=== PATIENT | male | born 1965 | race Caucasian/White ===

== ENCOUNTER 2018-11-06 13:09 | Inpatient (IN) | payer OTHER ==
[2018-11-06 18:17] VITALS: BMI 31.8
--- NOTE | 2018-11-06 19:46 | HP ---
CIWA Score Nausea/Vomitin Muscle Tremors: 3 Anxiety: 3 Agitation: 2 Paroxysmal Sweats: 1-Minimal Palms Moist Orientation: 0-Oriented Tacttile Disturbances: 1-Very Mild Itch/Numbness Auditory Disturbances: 1-Very Mild Visual Disturbances: 0-None Headache: 2-Mild CIWA-Ar Total Score: 15 - Admission Criteria [facility]ASAS Guidelines: Admission for Medically Managed Detox: Requires at least one of the followin. CIWA greater than 12 2. Seizures within the past 24 hours 3. Delirium tremens within the past 24 hours 4. Hallucinations within the past 24 hours 5. Acute intervention needed for co occurring medical disorder 6. Acute intervention needed for co occurring psychiatric disorder 7. Severe withdrawal that cannot be handled at a lower level of care (continued vomiting, continued diarrhea, abnormal vital signs) requiring intravenous medication and/or fluids 8. Admission ROS [facility] - HPI Chief Complaint: i need help to stop drinking alcohol cocaine Allergies/Adverse Reactions: Allergies Allergy/AdvReac Type Severity Reaction Status Date / Time No Known Allergies Allergy Verified 11/06/18 19:38 History of Present Illness: this 53 years old male with alcohol and cocaine dependence,seeking detox, withdrawal symptom mmtp 50 mgs/day for last 6 months has a bottle of methadone 50 mgs supposed to be given for sun 11/07/18 heroin abused nicotine dependence weight loss anxiety,depression,on zoloft 50 mgs hs last medicated 1 week ago plan to go back to mmtp program - Ebola screening Have you traveled outside of the country in the last 21 days: No Have you had contact with anyone from an Ebola affected area: No - Review of Systems Constitutional: Loss of Appetite, Night Sweats, Changes in sleep, Unintentional Wgt. Loss EENT: reports: Nose Congestion Respiratory: reports: No Symptoms reported Cardiac: reports: No Symptoms Reported GI: reports: Diarrhea, Nausea, Poor Appetite : reports: No Symptoms Reported Musculoskeletal: reports: Back Pain, Muscle Pain Integumentary: reports: Dryness Neuro: reports: Headache, Tremors Endocrine: reports: No Symptoms Reported Hematology: reports: No Symptoms Reported Psychiatric: reports: No Sypmtoms Reported, Judgement Intact, Mood/Affect Appropiate, Orientated x3, Anxious, Depressed (insomnia) Other Systems: Reviewed and Negative Patient History - Patient Medical History Hx Anemia: No Hx Asthma: No Hx Chronic Obstructive Pulmonary Disease (COPD): No Hx Cancer: No Hx Cardiac Disorders: No Hx Congestive Heart Failure: No Hx Hypertension: No Hx Hypercholesterolemia: No Hx Pacemaker: No HX Cerebrovascular Accident: No Hx Seizures: No Hx Dementia: No Hx Diabetes: No Hx Gastrointestinal Disorders: Yes (umbilical hernia,gerd) Hx Liver Disease: No Hx Genitourinary Disorders: No Hx Sexually Transmitted Disorders: No Hx Renal Disease (ESRD): No Hx Thyroid Disease: No Hx Human Immunodeficiency Virus (HIV): No (2011 negative) Hx Hepatitis C: No Hx Depression: Yes (anxiety ) Hx Suicide Attempt: No Hx Bipolar Disorder: No Hx Schizophrenia: No Other Medical History: insomnia,no suicidal,no homicidal - Patient Surgical History Past Surgical History: No - PPD History Previous Implant?: Yes Documented Results: Positive w/o proof Implanted On Prior [facility] Admission?: No PPD to be Administered?: No - Smoking Cessation Smoking history: Never smoked - Substance & Tx. History Hx Alcohol Use: Yes Hx Substance Use: Yes Substance Use Type: Alcohol, Cocaine Hx Substance Use Treatment: Yes (2002 unknown facility) - Substances abused Alcohol Substance route: Oral Frequency: Daily Amount used: liquor- 3 pints Age of first use: 25 Date of last use: 11/06/18 Cocaine Substance route: Inhalation Frequency: 1-2 times per week Amount used: 10$ Age of first use: 25 Date of last use: 11/03/18 Heroin Other (specify): sniff Frequency: 1-2 times per week Amount used: 1 bag Age of first use: 25 Date of last use: 11/04/18 Family Disease History - Family Disease History Family History: Denies Admission Physical Exam [facility] - Vital Signs Vital Signs: Vital Signs - 24 hr 11/06/18 18:12 Temperature 97.0 F L Pulse Rate 53 L Respiratory 17 Rate Blood Pressure 134/92 - Physical General Appearance: Yes: Moderate Distress, Tremorous, Irritable, Sweating, Anxious HEENTM: Yes: Normal ENT Inspection, Pharynx Normal Respiratory: Yes: Lungs Clear, Normal Breath Sounds, No Respiratory Distress Neck: Yes: Within Normal Limits, Supple, Trachea in good position Breast: Yes: Within Normal Limits Cardiology: Yes: Within Normal Limits, Regular Rhythm, Regular Rate, S1, S2 Abdominal: Yes: Within Normal Limits, Normal Bowel Sounds, Non Tender, Flat, Soft, Other (umbilical hernia) Genitourinary: Yes: Within Normal Limits Back: Yes: Muscle Spasm Musculoskeletal: Yes: full range of Motion, Back pain, Muscle Pain Extremities: Yes: Tremors Neurological: Yes: machine heel sprayer II-XII NML intact, Fully Oriented, Alert, Motor Strength 5/5 Integumentary: Yes: Dry Lymphatic: Yes: Within Normal Limits - Diagnostic (1) Alcohol dependence with uncomplicated withdrawal Current Visit: Yes Status: Acute (2) Cocaine dependence Current Visit: Yes Status: Acute (3) Heroin abuse Current Visit: Yes Status: Acute (4) Methadone maintenance therapy patient Current Visit: Yes Status: Acute (5) Umbilical hernia Current Visit: Yes Status: Acute (6) Peptic ulcer Current Visit: Yes Status: Acute (7) Dehydration Current Visit: Yes Status: Acute (8) Positive PPD, treated Current Visit: Yes Status: Acute Cleared for Admission S - Detox or Rehab [facility] Level of Care: Medically Managed Detox Regimen/Protocol: Librium Breathalyzer - Breathalyzer Breathalyzer: 0 Urine Drug Screen - Test Device Lot number: [id number] Expiration date: 06/11/20 - Control Is test valid?: Yes - Results Drug screen NEGATIVE: No Urine drug screen results: [facility]-Cocaine Inpatient Rehab Admission - Rehab Decision to Admit Inpatient rehab admission?: No
[2018-11-06] MEDS ORDERED: ACETAMINOPHEN 325 MG TABLET (FP) PO PRN ×2 (19:59)
[2018-11-06] MEDS ORDERED: chlordiazePOXIDE HCL 25 MG CAPSULE PO PRN (19:59)
[2018-11-06] MEDS ORDERED: MENTHOL/PHENOL 1 EACH UD MM PRN (19:59)
[2018-11-06] MEDS ORDERED: MELATONIN 5 MG TABLETS PO PRN (19:59)
[2018-11-06] MEDS ORDERED: MAGNESIUM HYDROX 2400MG/30ML ORAL SUSPENSION 30 ML CUP PO PRN (19:59)
[2018-11-06] MEDS ORDERED: IBUPROFEN 400 MG TABLET (FP) PO PRN (19:59)
[2018-11-06] MEDS ORDERED: hydrOXYzine PAMOATE 25 MG CAPSULE (FP) PO PRN (19:59)
[2018-11-06] MEDS ORDERED: METHOCARBAMOL 500 MG TABLET PO PRN (19:59)
[2018-11-06] MEDS ORDERED: MAGNESIUM CITRATE 300 ML BOTTLE PO PRN (19:59)
[2018-11-06] MEDS ORDERED: MAG HYDROX/AL HYDROX/SIMETH 30 ML UNIT-DOSE CUP PO PRN (19:59)
[2018-11-06] MEDS ORDERED: BISMUTH SUBSALICYLATE 524 MG/30 ML UD PO PRN (19:59)
[2018-11-06] MEDS: RANITIDINE HCL 150 MG TABLET (FP) PO SCH (21:12)
[2018-11-06] MEDS: THIAMINE HCL 100 MG TABLET (FP) PO SCH (21:12)
[2018-11-06] MEDS: chlordiazePOXIDE HCL 25 MG CAPSULE PO SCH (22:00)
[2018-11-06 23:51] LABS: PH,URINE 6.5 (5.0-8.0); URINE APPEARANCE CLEAR; URINE BILIRUBIN NEGATIVE (NEGATIVE); URINE COLOR YELLOW; URINE GLUCOSE (UA) NEGATIVE (NEGATIVE); URINE KETONE TRACE (NEGATIVE); URINE LEUK ESTERASE NEGATIVE (NEGATIVE); URINE NITRITE NEGATIVE (NEGATIVE); URINE PROTEIN NEGATIVE (NEGATIVE)
[2018-11-07] MEDS: chlordiazePOXIDE HCL 25 MG CAPSULE PO SCH ×4 (05:48→22:20)
[2018-11-07] MEDS: RANITIDINE HCL 150 MG TABLET (FP) PO SCH ×2 (10:20→22:21)
[2018-11-07] MEDS: PRENATAL VITAMINS W/ FOLIC ACID TABLET (FP) PO SCH (10:20)
[2018-11-07 10:44] LABS: HEMATOCRIT 39.6 % (35.4-49); HEMOGLOBIN 12.8 GM/dL (11.7-16.9); MCH 30.1 pg (25.7-33.7); MCHC 32.2 g/dl (32.0-35.9); MEAN CELL VOLUME 93.5 fl (80-96); MEAN PLT VOLUME 11.6 fl (7.5-11.1); PLATELET COUNT 105 K/MM3 (134-434); RBC 4.23 M/mm3 (4.00-5.60); WHITE BLOOD COUNT 3.6 K/mm3 (4.0-10.0)
[2018-11-07 10:49] LABS: ALBUMIN 2.8 g/dl (3.4-5.0); ALK PHOS 104 U/L (45-117); ANION GAP 4 MMOL/L (8-16); BILIRUBIN,TOTAL 0.3 mg/dL (0.2-1); BLOOD UREA NITROGEN 6 mg/dL (7-18); CALCIUM 8.7 mg/dL (8.5-10.1); CHLORIDE 103 mmol/L (98-107); CO2 32 mmol/L (21-32); CREATININE 0.4 mg/dL (0.55-1.3); GLUCOSE,RANDOM 75 mg/dL (74-106); POTASSIUM 3.5 mmol/L (3.5-5.1); SGOT/AST 40 U/L (15-37); SGPT/ALT 43 U/L (13-61); SODIUM 138 mmol/L (136-145); TOT PROT 6.7 g/dl (6.4-8.2)
--- NOTE | 2018-11-07 10:56 | PN ---
[facility] CIWA - CIWA Score Nausea/Vomitin-Mild Nausea/No Vomiting Muscle Tremors: 4-Moderate,w/Arms Extend Anxiety: 1-Mildly Anxious Agitation: 3 Paroxysmal Sweats: 1-Minimal Palms Moist Orientation: 2-Disoriented Date<2 days Tacttile Disturbances: 0-None Auditory Disturbances: 0-None Visual Disturbances: 0-None Headache: 0-None Present CIWA-Ar Total Score: 12 S Progress Note (SOAP) Subjective: feeling tired wants to stay on bed sleep longer hesitate to talk about alcohol misuse Objective: 11/07/18 10:56 Vital Signs Temperature 98.1 F 11/07/18 09:21 Pulse Rate 52 L 11/07/18 09:21 Respiratory Rate 18 11/07/18 09:21 Blood Pressure 140/82 11/07/18 09:21 O2 Sat by Pulse Oximetry (%) Laboratory Last Values Sodium 138 mmol/L (136-145) 11/07/18 07:00 Potassium 3.5 mmol/L (3.5-5.1) 11/07/18 07:00 Chloride 103 mmol/L (98-107) 11/07/18 07:00 Carbon Dioxide 32 mmol/L (21-32) 11/07/18 07:00 Anion Gap 4 MMOL/L (8-16) L 11/07/18 07:00 BUN 6 mg/dL (7-18) L 11/07/18 07:00 Creatinine 0.4 mg/dL (0.55-1.3) L 11/07/18 07:00 Creat Clearance w eGFR 225.02 (>60) 11/07/18 07:00 Random Glucose 75 mg/dL (74-106) 11/07/18 07:00 Calcium 8.7 mg/dL (8.5-10.1) 11/07/18 07:00 Total Bilirubin 0.3 mg/dL (0.2-1) 11/07/18 07:00 AST 40 U/L (15-37) H 11/07/18 07:00 ALT 43 U/L (13-61) 11/07/18 07:00 Alkaline Phosphatase 104 U/L (45-117) 11/07/18 07:00 Total Protein 6.7 g/dl (6.4-8.2) 11/07/18 07:00 Albumin 2.8 g/dl (3.4-5.0) L 11/07/18 07:00 Urine Color Yellow 11/06/18 23:40 Urine Appearance Clear 11/06/18 23:40 Urine pH 6.5 (5.0-8.0) 11/06/18 23:40 Ur Specific [place] 1.025 (1.010-1.035) 11/06/18 23:40 Urine Protein Negative (NEGATIVE) 11/06/18 23:40 Urine Glucose (UA) Negative (NEGATIVE) 11/06/18 23:40 Urine Ketones Trace (NEGATIVE) H 11/06/18 23:40 Urine Blood Negative (NEGATIVE) 11/06/18 23:40 Urine Nitrite Negative (NEGATIVE) 11/06/18 23:40 Urine Bilirubin Negative (NEGATIVE) 11/06/18 23:40 Urine Urobilinogen 1.0 mg/dL (0.2-1.0) 11/06/18 23:40 Ur Leukocyte Esterase Negative (NEGATIVE) 11/06/18 23:40 lab noted Assessment: 11/07/18 10:57 alcohol withdrawal sx Plan: continue detox
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
[2018-11-07] MEDS: THIAMINE HCL 100 MG TABLET (FP) PO SCH (22:20)
[2018-11-08] MEDS: chlordiazePOXIDE HCL 25 MG CAPSULE PO SCH ×3 (05:37→17:31)
[2018-11-08] MEDS ORDERED: METHADONE HCL 10 MG TABLET PO SCH (07:30)
[2018-11-08] MEDS ORDERED: METHADONE HCL 10 MG TABLET ONE (07:40)
[2018-11-08] MEDS ORDERED: METHADONE HCL 40 MG DISPERSABLE TABLET ONE (07:41)
[2018-11-08] MEDS: METHADONE 40 MG, METHADONE 10 MG PO SCH (07:43)
--- NOTE | 2018-11-08 10:07 | PN ---
[facility] CIWA - CIWA Score Nausea/Vomitin-No Nausea/No Vomiting Muscle Tremors: 2 Anxiety: 2 Agitation: 2 Paroxysmal Sweats: 1-Minimal Palms Moist Orientation: 0-Oriented Tacttile Disturbances: 0-None Auditory Disturbances: 0-None Visual Disturbances: 0-None Headache: 1-Very Mild CIWA-Ar Total Score: 8 S Progress Note (SOAP) Subjective: feeling better that taking zoloft for depression less restlessness Objective: 11/08/18 10:06 Vital Signs Temperature 96 F L 11/08/18 09:08 Pulse Rate 68 11/08/18 09:08 Respiratory Rate 20 11/08/18 09:08 Blood Pressure 105/65 11/08/18 09:08 O2 Sat by Pulse Oximetry (%) Laboratory Last Values WBC 3.6 K/mm3 (4.0-10.0) L 11/07/18 07:00 RBC 4.23 M/mm3 (4.00-5.60) 11/07/18 07:00 Hgb 12.8 GM/dL (11.7-16.9) 11/07/18 07:00 Hct 39.6 % (35.4-49) 11/07/18 07:00 MCV 93.5 fl (80-96) 11/07/18 07:00 MCH 30.1 pg (25.7-33.7) 11/07/18 07:00 MCHC 32.2 g/dl (32.0-35.9) 11/07/18 07:00 RDW 16.0 % (11.9-15.9) H 11/07/18 07:00 Plt Count 105 K/MM3 (134-434) L 11/07/18 07:00 MPV 11.6 fl (7.5-11.1) H 11/07/18 07:00 Sodium 138 mmol/L (136-145) 11/07/18 07:00 Potassium 3.5 mmol/L (3.5-5.1) 11/07/18 07:00 Chloride 103 mmol/L (98-107) 11/07/18 07:00 Carbon Dioxide 32 mmol/L (21-32) 11/07/18 07:00 Anion Gap 4 MMOL/L (8-16) L 11/07/18 07:00 BUN 6 mg/dL (7-18) L 11/07/18 07:00 Creatinine 0.4 mg/dL (0.55-1.3) L 11/07/18 07:00 Creat Clearance w eGFR 225.02 (>60) 11/07/18 07:00 Random Glucose 75 mg/dL (74-106) 11/07/18 07:00 Calcium 8.7 mg/dL (8.5-10.1) 11/07/18 07:00 Total Bilirubin 0.3 mg/dL (0.2-1) 11/07/18 07:00 AST 40 U/L (15-37) H 11/07/18 07:00 ALT 43 U/L (13-61) 11/07/18 07:00 Alkaline Phosphatase 104 U/L (45-117) 11/07/18 07:00 Total Protein 6.7 g/dl (6.4-8.2) 11/07/18 07:00 Albumin 2.8 g/dl (3.4-5.0) L 11/07/18 07:00 Urine Color Yellow 11/06/18 23:40 Urine Appearance Clear 11/06/18 23:40 Urine pH 6.5 (5.0-8.0) 11/06/18 23:40 Ur Specific [place] 1.025 (1.010-1.035) 11/06/18 23:40 Urine Protein Negative (NEGATIVE) 11/06/18 23:40 Urine Glucose (UA) Negative (NEGATIVE) 11/06/18 23:40 Urine Ketones Trace (NEGATIVE) H 11/06/18 23:40 Urine Blood Negative (NEGATIVE) 11/06/18 23:40 Urine Nitrite Negative (NEGATIVE) 11/06/18 23:40 Urine Bilirubin Negative (NEGATIVE) 11/06/18 23:40 Urine Urobilinogen 1.0 mg/dL (0.2-1.0) 11/06/18 23:40 Ur Leukocyte Esterase Negative (NEGATIVE) 11/06/18 23:40 RPR Titer Nonreactive (NONREACTIVE) 11/07/18 07:00 lab noted Assessment: 11/08/18 10:06 alcohol withdrawal sx Plan: continue detox
[2018-11-08] MEDS: PRENATAL VITAMINS W/ FOLIC ACID TABLET (FP) PO SCH (10:17)
[2018-11-08] MEDS: RANITIDINE HCL 150 MG TABLET (FP) PO SCH ×2 (10:18→22:27)
[2018-11-08] MEDS: SERTRALINE HCL 50 MG TABLET (FP) PO SCH (10:18)
--- NOTE | 2018-11-08 11:02 | EKG ---
Test Reason : Blood Pressure : / mmHG Vent. Rate : 048 BPM Atrial Rate : 048 BPM P-R Int : 126 ms QRS Dur : 090 ms QT Int : 532 ms P-R-T Axes : 042 066 065 degrees QTc Int : 475 ms SINUS BRADYCARDIA OTHERWISE NORMAL ECG NO PREVIOUS ECGS AVAILABLE Confirmed by KYLE GOTTLIEB MD ([id number]) on 11/08/2018 11:01:45 AM Referred By: Confirmed By:KYLE GOTTLIEB MD
[2018-11-08] MEDS: THIAMINE HCL 100 MG TABLET (FP) PO SCH (22:27)
[2018-11-08] MEDS: chlordiazePOXIDE HCL 10 MG CAPSULE PO SCH (22:27)
[2018-11-08] MEDS ORDERED: chlordiazePOXIDE HCL 10 MG CAPSULE PO PRN (23:00)
[2018-11-09] MEDS ORDERED: METHADONE HCL 10 MG TABLET ONE (04:04)
[2018-11-09] MEDS ORDERED: METHADONE HCL 40 MG DISPERSABLE TABLET ONE (04:05)
[2018-11-09] MEDS: chlordiazePOXIDE HCL 10 MG CAPSULE PO SCH ×3 (05:41→17:18)
[2018-11-09] MEDS: METHADONE 40 MG, METHADONE 10 MG PO SCH (05:41)
[2018-11-09] MEDS: PRENATAL VITAMINS W/ FOLIC ACID TABLET (FP) PO SCH (10:04)
[2018-11-09] MEDS: RANITIDINE HCL 150 MG TABLET (FP) PO SCH ×2 (10:05→22:09)
[2018-11-09] MEDS: SERTRALINE HCL 50 MG TABLET (FP) PO SCH (10:05)
--- NOTE | 2018-11-09 10:52 | DS ---
[facility] Detox Discharge Summary Admission Date: 11/06/18 Discharge Date: 11/09/18 - History Present History: Alcohol Dependence Additional Comments: feeling better today talking about aftercare with staff positive attitude in maintaining sober Pertinent Past History: bring in medication list and - Physical Exam Results Vital Signs: Vital Signs Temperature 96.9 F L 11/09/18 09:09 Pulse Rate 64 11/09/18 09:09 Respiratory Rate 18 11/09/18 09:09 Blood Pressure 111/71 11/09/18 09:09 O2 Sat by Pulse Oximetry (%)
--- NOTE | 2018-11-09 10:54 | PN ---
[facility] CIWA - CIWA Score Nausea/Vomitin-No Nausea/No Vomiting Muscle Tremors: 1-None Visible, but [place] Anxiety: 1-Mildly Anxious Agitation: 1-Slight > Activity Paroxysmal Sweats: No Perspiration Orientation: 0-Oriented Tacttile Disturbances: 0-None Auditory Disturbances: 0-None Visual Disturbances: 0-None Headache: 1-Very Mild CIWA-Ar Total Score: 4 S Progress Note (SOAP) Subjective: feeling better today ambulating on hallway social with peers in day room Objective: 11/09/18 10:54 Vital Signs Temperature 96.9 F L 11/09/18 09:09 Pulse Rate 64 11/09/18 09:09 Respiratory Rate 18 11/09/18 09:09 Blood Pressure 111/71 11/09/18 09:09 O2 Sat by Pulse Oximetry (%) Laboratory Last Values WBC 3.6 K/mm3 (4.0-10.0) L 11/07/18 07:00 RBC 4.23 M/mm3 (4.00-5.60) 11/07/18 07:00 Hgb 12.8 GM/dL (11.7-16.9) 11/07/18 07:00 Hct 39.6 % (35.4-49) 11/07/18 07:00 MCV 93.5 fl (80-96) 11/07/18 07:00 MCH 30.1 pg (25.7-33.7) 11/07/18 07:00 MCHC 32.2 g/dl (32.0-35.9) 11/07/18 07:00 RDW 16.0 % (11.9-15.9) H 11/07/18 07:00 Plt Count 105 K/MM3 (134-434) L 11/07/18 07:00 MPV 11.6 fl (7.5-11.1) H 11/07/18 07:00 Sodium 138 mmol/L (136-145) 11/07/18 07:00 Potassium 3.5 mmol/L (3.5-5.1) 11/07/18 07:00 Chloride 103 mmol/L (98-107) 11/07/18 07:00 Carbon Dioxide 32 mmol/L (21-32) 11/07/18 07:00 Anion Gap 4 MMOL/L (8-16) L 11/07/18 07:00 BUN 6 mg/dL (7-18) L 11/07/18 07:00 Creatinine 0.4 mg/dL (0.55-1.3) L 11/07/18 07:00 Creat Clearance w eGFR 225.02 (>60) 11/07/18 07:00 Random Glucose 75 mg/dL (74-106) 11/07/18 07:00 Calcium 8.7 mg/dL (8.5-10.1) 11/07/18 07:00 Total Bilirubin 0.3 mg/dL (0.2-1) 11/07/18 07:00 AST 40 U/L (15-37) H 11/07/18 07:00 ALT 43 U/L (13-61) 11/07/18 07:00 Alkaline Phosphatase 104 U/L (45-117) 11/07/18 07:00 Total Protein 6.7 g/dl (6.4-8.2) 11/07/18 07:00 Albumin 2.8 g/dl (3.4-5.0) L 11/07/18 07:00 Urine Color Yellow 11/06/18 23:40 Urine Appearance Clear 11/06/18 23:40 Urine pH 6.5 (5.0-8.0) 11/06/18 23:40 Ur Specific [place] 1.025 (1.010-1.035) 11/06/18 23:40 Urine Protein Negative (NEGATIVE) 11/06/18 23:40 Urine Glucose (UA) Negative (NEGATIVE) 11/06/18 23:40 Urine Ketones Trace (NEGATIVE) H 11/06/18 23:40 Urine Blood Negative (NEGATIVE) 11/06/18 23:40 Urine Nitrite Negative (NEGATIVE) 11/06/18 23:40 Urine Bilirubin Negative (NEGATIVE) 11/06/18 23:40 Urine Urobilinogen 1.0 mg/dL (0.2-1.0) 11/06/18 23:40 Ur Leukocyte Esterase Negative (NEGATIVE) 11/06/18 23:40 RPR Titer Nonreactive (NONREACTIVE) 11/07/18 07:00 lab noted Assessment: 11/09/18 10:55 mild alcohol withdrawal sx Plan: continue detox
[2018-11-09] MEDS: THIAMINE HCL 100 MG TABLET (FP) PO SCH (22:09)
[2018-11-09] MEDS ORDERED: chlordiazePOXIDE HCL 10 MG CAPSULE PO SCH (23:00)
[2018-11-10] MEDS ORDERED: METHADONE HCL 10 MG TABLET ONE (04:44)
[2018-11-10] MEDS ORDERED: METHADONE HCL 40 MG DISPERSABLE TABLET ONE (04:45)
[2018-11-10] MEDS: METHADONE 40 MG, METHADONE 10 MG PO SCH (05:09)
[2018-11-10 06:28] VITALS: BP 99/60; PULSE 62; TEMP 99
--- NOTE | 2018-11-10 11:20 | DS ---
[facility] Detox Discharge Summary Admission Date: 11/06/18 Discharge Date: 11/10/18 - History Present History: Alcohol Dependence Additional Comments: 53 years old male admitted on 11/06/18 for alcohol withdrawal stabilization completed detox regiment aftercare community self help meeting and group Pertinent Past History: bring in medication list and lab report to aftercare appointment patient agrees return to methadone maintenance program for inguinal hernia follow up - Physical Exam Results Vital Signs: Vital Signs Temperature 99.0 F 11/10/18 06:28 Pulse Rate 62 11/10/18 06:28 Respiratory Rate 18 11/10/18 06:30 Blood Pressure 99/60 11/10/18 06:28 O2 Sat by Pulse Oximetry (%) Pertinent Admission Physical Exam Findings: alcohol withdrawal sx Laboratory Last Values WBC 3.6 K/mm3 (4.0-10.0) L 11/07/18 07:00 RBC 4.23 M/mm3 (4.00-5.60) 11/07/18 07:00 Hgb 12.8 GM/dL (11.7-16.9) 11/07/18 07:00 Hct 39.6 % (35.4-49) 11/07/18 07:00 MCV 93.5 fl (80-96) 11/07/18 07:00 MCH 30.1 pg (25.7-33.7) 11/07/18 07:00 MCHC 32.2 g/dl (32.0-35.9) 11/07/18 07:00 RDW 16.0 % (11.9-15.9) H 11/07/18 07:00 Plt Count 105 K/MM3 (134-434) L 11/07/18 07:00 MPV 11.6 fl (7.5-11.1) H 11/07/18 07:00 Sodium 138 mmol/L (136-145) 11/07/18 07:00 Potassium 3.5 mmol/L (3.5-5.1) 11/07/18 07:00 Chloride 103 mmol/L (98-107) 11/07/18 07:00 Carbon Dioxide 32 mmol/L (21-32) 11/07/18 07:00 Anion Gap 4 MMOL/L (8-16) L 11/07/18 07:00 BUN 6 mg/dL (7-18) L 11/07/18 07:00 Creatinine 0.4 mg/dL (0.55-1.3) L 11/07/18 07:00 Creat Clearance w eGFR 225.02 (>60) 11/07/18 07:00 Random Glucose 75 mg/dL (74-106) 11/07/18 07:00 Calcium 8.7 mg/dL (8.5-10.1) 11/07/18 07:00 Total Bilirubin 0.3 mg/dL (0.2-1) 11/07/18 07:00 AST 40 U/L (15-37) H 11/07/18 07:00 ALT 43 U/L (13-61) 11/07/18 07:00 Alkaline Phosphatase 104 U/L (45-117) 11/07/18 07:00 Total Protein 6.7 g/dl (6.4-8.2) 11/07/18 07:00 Albumin 2.8 g/dl (3.4-5.0) L 11/07/18 07:00 Urine Color Yellow 11/06/18 23:40 Urine Appearance Clear 11/06/18 23:40 Urine pH 6.5 (5.0-8.0) 11/06/18 23:40 Ur Specific [place] 1.025 (1.010-1.035) 11/06/18 23:40 Urine Protein Negative (NEGATIVE) 11/06/18 23:40 Urine Glucose (UA) Negative (NEGATIVE) 11/06/18 23:40 Urine Ketones Trace (NEGATIVE) H 11/06/18 23:40 Urine Blood Negative (NEGATIVE) 11/06/18 23:40 Urine Nitrite Negative (NEGATIVE) 11/06/18 23:40 Urine Bilirubin Negative (NEGATIVE) 11/06/18 23:40 Urine Urobilinogen 1.0 mg/dL (0.2-1.0) 11/06/18 23:40 Ur Leukocyte Esterase Negative (NEGATIVE) 11/06/18 23:40 RPR Titer Nonreactive (NONREACTIVE) 11/07/18 07:00 lab noted - Treatment Hospital Course: Detox Protocol Followed, Detoxed Safely, Responded well, Discharged Condition Good, Rehab Referral Accepted Patient has Accepted a Rehab Referral to: community self help support group - Medication Discharge Medications: Ambulatory Orders NK [No Known Home Medication] 05/01/19 - Diagnosis (1) Alcohol dependence with uncomplicated withdrawal Status: Acute (2) Methadone maintenance therapy patient Status: Chronic (3) Positive PPD, treated Status: Resolved (4) Umbilical hernia Status: Chronic Qualifiers: Obstruction and gangrene presence: without obstruction or gangrene Qualified Code(s): K42.9 - Umbilical hernia without obstruction or gangrene - AMA Did Patient Leave Against Medical Advice: No
== END 2018-11-10 08:32 | disposition home or self-care (01) | DRG 773 ==
LOC: YASAS 13:09 → Y3N 19:51
PROVIDERS: ADMIT Surgery; ATTEND Surgery
PROC: HZ2ZZZZ Detoxification Services for Substance Abuse Treatment (ICD-10-PCS; principal; 2018-11-06)
DX: F10.230 Alcohol dependence with withdrawal, uncomplicated (principal); F14.20 Cocaine dependence, uncomplicated; F11.20 Opioid dependence, uncomplicated; F17.210 Nicotine dependence, cigarettes, uncomplicated; F32.9 Major depressive disorder, single episode, unspecified; K27.9 Peptic ulcer, site unspecified, unspecified as acute or chronic, without hemorrhage or perforation; K42.9 Umbilical hernia without obstruction or gangrene; R76.11 Nonspecific reaction to tuberculin skin test without active tuberculosis; R63.4 Abnormal weight loss; Z68.31 Body mass index [BMI] 31.0-31.9, adult
CPT/HCPCS: 36415; 71046-TC-FY; 80053; 81003; 85027; 86593; 93005; 93010